=== PATIENT | male | born 1955 | race Caucasian/White ===

== ENCOUNTER → 2024-01-12 07:22 | Outpatient (REF) | payer OTHER, SELFPAY | LOC: HWRCS 07:22 | PROVIDERS: ATTENDING PHYSICIAN Internal Medicine Cardiovascular Disease; FAMILY PHYSICIAN Family Medicine | DX: I48.0 Paroxysmal atrial fibrillation (principal); I77.810 Thoracic aortic ectasia | CPT/HCPCS: 93306 ==